=== PATIENT | female | born 1955 | race Caucasian/White ===

== ENCOUNTER → 2023-06-15 10:21 | Outpatient (REF) | payer OTHER, SELFPAY | LOC: HWRAD 10:21 | PROVIDERS: ATTENDING PHYSICIAN Internal Medicine; FAMILY PHYSICIAN Family Medicine | DX: R19.5 Other fecal abnormalities (principal); R14.0 Abdominal distension (gaseous) | CPT/HCPCS: 74170; Q9967 ==

== ENCOUNTER 2023-09-21 16:40 | Emergency (ER) | payer OTHER, SELFPAY ==
[2023-09-21 16:58] VITALS: BP 163/97
--- NOTE | 2023-09-21 19:49 | ED.GENMED ---
History of Present Illness
General
Chief Complaint: Musculo-Skeletal Complaint
Source: patient
Exam Limitations: none
Time Seen by Provider: 09/21/23 18:58
Nursing documentation reviewed up to this point in time: agreed with
History of Present Illness
History of Present Illness:
68-year-old female past medical history of previous breast cancer in remission, GERD presenting to the emergency department today with concerns of left foot pain after stepping and missing a step landing awkwardly on the left foot. Denies
additional injuries or head trauma not on blood thinners.
Past History
Past History
ED Past Medical History: Cancer and Other (Anxiety); Negative Asthma, HTN, Hypercholesterolemia or NIDDM
ED Past Surgical History: Other (Mastectomy with reconstruction)
Social History
Tobacco: Non-smoker
Alcohol: Occasional
Drug: None
Personal:
Living: with family
Family History
Family History: Negative Early CAD
Review of Systems
Review of Systems
Allergies reviewed?: Yes
All Other Systems: ROS reviewed and negative except as documented in HPI and ROS
Phy Exam
Physical Exam
Physical Exam:
GENERAL: Alert , in no apparent distress
EYE: pupils equal and reactive
NECK: Supple, no significant adenopathy.
ENT: o/p clr, mmm.
CARDIAC: Regular rate and rhythm .
LUNGS: Clear breath sounds bilaterally, no acute respiratory distress, no wheezes/rales/rhonchi
ABDOMEN: Soft, without focal tenderness, no r/g, no cvat
NEUROLOGICAL: Alert and oriented, no focal neuro deficits
SKIN: Warm and dry, skin intact.
MUSCULOSKELETAL: Swelling and ecchymosis to the left lateral foot at the midfoot mainly. Mainly tenderness to the mid fifth metatarsal., well perfused.
PSYCH: Normal and appropriate interaction.
Course
Orders/Labs/Results
Orders:
Orders
09/21/23 17:01
Foot, Left 3 View [CR Foot - Left Min 3 Views] Urgent
Comment:
Reason For Exam: tirpped down few steps and injuried left foot
09/21/23 19:48
Crutches-Treatment ONCE
boot [Ortho Boot Left- Treatment] ONCE
Short or tall?: Short
Vital Signs
Initial and Last Documented VS:
Initial Vital Signs
Temp Pulse Resp BP Pulse Ox
98.3 F 78 16 163/97 98
09/21/23 16:58 09/21/23 16:58 09/21/23 16:58 09/21/23 16:58 09/21/23 16:58
Last Documented Vital Signs
Temp Pulse Resp BP Pulse Ox
98.3 F 76 18 156/76 99
09/21/23 16:58 09/21/23 20:32 09/21/23 20:32 09/21/23 20:32 09/21/23 20:32
MDM/Problems Addressed
MDM/Problems Addressed:
68-year-old female presenting to the emergency department today with concerns of left foot pain and awkwardly missing a step. Here she has bruising to the left lateral midfoot. Fracture seen to the midshaft of the fifth metatarsal. Case was
discussed with Ortho recommending walking boot but nonweightbearing and close follow-up. Otherwise stable for discharge neuro vascularly intact.
*Critical Care Note
Total Time (30-74mins, 75-104mins- exclusive of procedures): Not Applicable
ED Attending Note
-
Portions of this chart may have been created with voice recognition software.� Occasional wrong word or��sound alike� substitutions may have occurred due to the inherent limitations of voice recognition software.
Discharge Plan
Departure
Patient Disposition: Home (Routine Discharge)
Date of Disposition: 09/21/23
Time of Disposition: 19:49
Patient with high blood pressure during this ER visit?: No
Condition: Good
Covid-19: Not Applicable
Discharge Problem:
Fracture of fifth metatarsal bone of left foot
Instructions: Foot Fracture (DC)
Prescriptions:
No Action
dexlansoprazole [Dexilant] 30 MG capsule,biphase delayed releas
60 mg PO DAILY
Patient Comments:
prednisone 1 MG tablet
7 mg PO DAILY
Referrals:
Michi Ferrara MD [Active] - Follow up in 5-7 days
Rodriog Nj MD [Family Provider] -
Activity Restrictions/Additional Instructions:
You came to the emergency department today for concerns of a foot fracture. Please wear the boot and nonweightbearing until follow-up with Ortho in the next week. Return to the emergency department for any worsening, new or concerning symptoms.
Interventions
Interventions:
*Risk Screen - Suicide Last Done: 09/21/23 18:41
*Neglect/Abuse Screening Last Done: 09/21/23 18:41
ED- Fall Risk Assessment Last Done: 09/21/23 18:57
*ED COVID-19 Vaccine History Last Done: 09/21/23 16:58
*Nursing Disposition Last Done: 09/21/23 20:34
ED-Musculoskeletal Assessment Last Done: 09/21/23 18:41
Discharge Date and Time
Discharge Date/Time: 09/21/23 20:35
Print Language: RWANDAN
[2023-09-21 20:32] VITALS: BP 156/76
== END 2023-09-21 20:35 | disposition home or self-care (01) ==
LOC: EMR 16:40
PROVIDERS: EMERGENCY PHYSICIAN Student in an Organized Health Care Education/Training Program; FAMILY PHYSICIAN Family Medicine
DX: S92.352A Displaced fracture of fifth metatarsal bone, left foot, initial encounter for closed fracture (principal); W19.XXXA Unspecified fall, initial encounter; K21.9 Gastro-esophageal reflux disease without esophagitis
CPT/HCPCS: 99283; 73630

== ENCOUNTER → 2024-02-02 13:22 | Outpatient (REF) | payer OTHER, SELFPAY | LOC: WDC 13:22 | PROVIDERS: ATTENDING PHYSICIAN Obstetrics & Gynecology; FAMILY PHYSICIAN Surgery Plastic and Reconstructive Surgery | DX: Z12.31 Encounter for screening mammogram for malignant neoplasm of breast (principal) | CPT/HCPCS: 77063; 77067 ==

== ENCOUNTER 2024-04-12 06:25 | Day surgery (SDC) | payer OTHER, SELFPAY | END 2024-04-12 13:34 | disposition home or self-care (01) | LOC: GI 06:25 | PROVIDERS: ATTENDING PHYSICIAN Internal Medicine | DX: K22.70 Barrett's esophagus without dysplasia (principal); R13.12 Dysphagia, oropharyngeal phase; K22.4 Dyskinesia of esophagus; K31.7 Polyp of stomach and duodenum; K29.50 Unspecified chronic gastritis without bleeding | CPT/HCPCS: 43239; 88305; 88342 ==

== ENCOUNTER → 2024-04-15 08:25 | Outpatient (REF) | payer OTHER, SELFPAY | LOC: RST 08:25 | PROVIDERS: ATTENDING PHYSICIAN Internal Medicine; FAMILY PHYSICIAN Family Medicine | DX: R13.12 Dysphagia, oropharyngeal phase (principal) | CPT/HCPCS: 74230; 92611 ==

== ENCOUNTER → 2024-06-23 10:37 | Outpatient (REF) | payer BC, SELFPAY | LOC: DHSLP 10:37 | PROVIDERS: ATTENDING PHYSICIAN Internal Medicine Critical Care Medicine; FAMILY PHYSICIAN Family Medicine | DX: G47.30 Sleep apnea, unspecified (principal); R06.83 Snoring; R53.83 Other fatigue | CPT/HCPCS: 95800 ==

== ENCOUNTER → 2024-08-17 08:19 | Outpatient (REF) | payer BC, SELFPAY | LOC: DHSLP 08:19 | PROVIDERS: ATTENDING PHYSICIAN Internal Medicine Critical Care Medicine; FAMILY PHYSICIAN Family Medicine | DX: G47.00 Insomnia, unspecified (principal) | CPT/HCPCS: 95810 ==

== ENCOUNTER → 2024-09-12 10:34 | Outpatient (REF) | payer BC, SELFPAY | LOC: RAD 10:34 | PROVIDERS: ATTENDING PHYSICIAN Internal Medicine Rheumatology; FAMILY PHYSICIAN Family Medicine | DX: M81.0 Age-related osteoporosis without current pathological fracture (principal) | CPT/HCPCS: 77080 ==

== ENCOUNTER 2024-09-26 11:32 | Outpatient (RCR) | payer BC, SELFPAY | END 2024-09-26 23:59 | disposition home or self-care (01) | LOC: RPT 11:32 | PROVIDERS: ATTENDING PHYSICIAN Family Medicine | DX: M54.2 Cervicalgia (principal); M62.838 Other muscle spasm; Z73.6 Limitation of activities due to disability | CPT/HCPCS: 97010; 97110; 97112; 97140; 97162 ==

== ENCOUNTER 2024-10-24 10:33 | Outpatient (RCR) | payer BC, SELFPAY | END 2024-10-24 23:59 | disposition home or self-care (01) | LOC: RPT 10:33 | PROVIDERS: ATTENDING PHYSICIAN Family Medicine | DX: M54.2 Cervicalgia (principal); M62.838 Other muscle spasm; Z73.6 Limitation of activities due to disability | CPT/HCPCS: 97010; 97110; 97112; 97140 ==

== ENCOUNTER → 2024-12-08 13:42 | Outpatient (REF) | payer OTHER, SELFPAY ==
[2024-12-08 14:54] LABS: Hematocrit 39.1 % (37.0-47.0); Hemoglobin 13.5 g/dL (12.0-16.0); Mean Corp Hgb Conc. 34.5 g/dL (33.0-37.0); Mean Corpuscular Volume 100.5 fL (81.0-99.0); Nucleated Red Blood Cells % 0 %; Platelet Count 299 10^3/uL (130-400); Red Cell Dist. Width 14.6 % (11.5-14.5)
[2024-12-08 15:44] LABS: ALT (SGPT) 25 U/L (0-35); AST (SGOT) 32 U/L (14-36); Albumin 5.0 g/dl (3.5-5.0); Alkaline Phosphatase 44 U/L (38-126); Blood Urea Nitrogen 13 mg/dl (7-17); Calcium 9.6 mg/dl (8.4-10.2); Carbon Dioxide 30 mmol/L (22-30); Chloride 104 mmol/L (98-107); Glucose 115 mg/dl (70-99); Potassium 4.4 mmol/L (3.5-5.1); Sodium 142 mmol/L (135-145); Total Protein 7.7 g/dl (6.3-8.2); eGFR > 60.00
== END ==
LOC: REG 13:42
PROVIDERS: ATTENDING PHYSICIAN Family Medicine
DX: R42 Dizziness and giddiness (principal); D75.89 Other specified diseases of blood and blood-forming organs
CPT/HCPCS: 36415; 80053; 85025

== ENCOUNTER 2024-12-12 09:58 | Outpatient (RCR) | payer OTHER, SELFPAY | END 2024-12-12 23:59 | disposition home or self-care (01) | LOC: RPT 09:58 | PROVIDERS: ATTENDING PHYSICIAN Family Medicine | DX: M54.2 Cervicalgia (principal); M62.838 Other muscle spasm; Z73.6 Limitation of activities due to disability | CPT/HCPCS: 97110; 97112; 97140 ==

== ENCOUNTER → 2024-12-16 06:53 | Outpatient (REF) | payer OTHER, SELFPAY | LOC: MRI 06:53 | PROVIDERS: ATTENDING PHYSICIAN Family Medicine | DX: M54.2 Cervicalgia (principal); M47.819 Spondylosis without myelopathy or radiculopathy, site unspecified | CPT/HCPCS: 72141 ==

== ENCOUNTER 2024-12-19 15:05 | Outpatient (RCR) | payer OTHER, SELFPAY | END 2024-12-19 23:59 | disposition home or self-care (01) | LOC: RPT 15:05 | PROVIDERS: ATTENDING PHYSICIAN Family Medicine | DX: R42 Dizziness and giddiness (principal); Z73.6 Limitation of activities due to disability; R26.89 Other abnormalities of gait and mobility | CPT/HCPCS: 97112; 97162 ==

== ENCOUNTER 2025-01-03 06:23 | Day surgery (SDC) | payer OTHER, SELFPAY | END 2025-01-03 10:03 | disposition home or self-care (01) | LOC: GI 06:23 | PROVIDERS: ATTENDING PHYSICIAN Internal Medicine | DX: R13.13 Dysphagia, pharyngeal phase (principal); K22.4 Dyskinesia of esophagus; K44.9 Diaphragmatic hernia without obstruction or gangrene | CPT/HCPCS: 43235 ==

== ENCOUNTER 2025-01-25 07:47 | Outpatient (RCR) | payer OTHER, SELFPAY | END 2025-01-25 23:59 | disposition home or self-care (01) | LOC: RPT 07:47 | PROVIDERS: ATTENDING PHYSICIAN Family Medicine | DX: M54.51 Vertebrogenic low back pain (principal); M47.819 Spondylosis without myelopathy or radiculopathy, site unspecified; M45.6 Ankylosing spondylitis lumbar region; Z73.6 Limitation of activities due to disability | CPT/HCPCS: 97010; 97110; 97112; 97162 ==

== ENCOUNTER → 2025-02-02 13:58 | Outpatient (REF) | payer OTHER, SELFPAY | LOC: WDC 13:58 | PROVIDERS: ATTENDING PHYSICIAN Obstetrics & Gynecology; FAMILY PHYSICIAN Family Medicine | DX: Z12.31 Encounter for screening mammogram for malignant neoplasm of breast (principal) | CPT/HCPCS: 77063; 77067 ==

== ENCOUNTER 2025-02-20 09:06 | Outpatient (RCR) | payer OTHER, SELFPAY | END 2025-02-20 23:59 | disposition home or self-care (01) | LOC: RPT 09:06 | PROVIDERS: ATTENDING PHYSICIAN Family Medicine | DX: M54.51 Vertebrogenic low back pain (principal); M47.819 Spondylosis without myelopathy or radiculopathy, site unspecified; M45.6 Ankylosing spondylitis lumbar region; Z73.6 Limitation of activities due to disability | CPT/HCPCS: 97110; 97112; 97164 ==

== ENCOUNTER 2025-03-20 07:28 | Outpatient (RCR) | payer OTHER, SELFPAY | END 2025-03-20 14:07 | disposition home or self-care (01) | LOC: RPT 07:28 | PROVIDERS: ATTENDING PHYSICIAN Family Medicine | DX: M54.51 Vertebrogenic low back pain (principal); M47.819 Spondylosis without myelopathy or radiculopathy, site unspecified; M45.6 Ankylosing spondylitis lumbar region; Z73.6 Limitation of activities due to disability | CPT/HCPCS: 97110; 97112 ==